=== PATIENT | female | born 2000 | race Two or more races ===

== ENCOUNTER → 2020-12-16 08:53 | Outpatient (CLI) | payer OTHER | END | disposition home or self-care (01) | LOC: PPH VACUNA 08:53 | DX: Z23 Encounter for immunization (principal) ==

== ENCOUNTER 2024-05-07 08:49 | Inpatient (IN) | payer OTHER ==
[~2024-05-07] VITALS: Ht 157.5 cm; Wt 84.4 kg
[2024-05-07] VITALS (11 sets, daily range): BP systolic 125–150; BP diastolic 71–96; O2SAT 99
[2024-05-07] MEDS ORDERED: AMPICILLIN SODIUM 2,000 MG VIAL IV STA (09:01)
[2024-05-07] MEDS ORDERED: MORPHINE SULFATE 4 MG/ML VIAL IV STA (09:06)
[2024-05-07] MEDS ORDERED: OXYTOCIN 1,000 ML IV ONE (09:15)
[2024-05-07] MEDS ORDERED: RINGERS SOLUTION,LACTATED 1,000 ML IV SCH (09:15)
[2024-05-07] MEDS ORDERED: AMPICILLIN TRI500 MG (09:15)
[2024-05-07] MEDS ORDERED: PRENATAL TABLE1 EAC1 (09:16)
[2024-05-07 10:11] LABS: PH,URINE 5.5 (5.0-8.0); URINE APPEARANCE Turbid; URINE BILIRRUBIN Small (NEGATIVE); URINE BLOOD Large; URINE COLOR Dark Yellow; URINE GLUCOSE Negative (NEGATIVE); URINE KETONE Trace (NEGATIVE); URINE LEUKOCYTE Large; URINE NITRATE Negative
[2024-05-07 10:28] LABS: URINE BACTERIA 9641.3 uL (0.0-1933); URINE RBC 303.7 uL (0.0-20.8); URINE WBC 3800.2 uL (0.0-23.2)
[2024-05-07 10:37] LABS: URINE EPITHELIAL CELLS > 201.7 uL (0.0-38.8); URINE PROTEIN 100 (NEGATIVE)
[2024-05-07 10:38] LABS: URINE CRYSTALS MODERATE /HPF
[2024-05-07 10:42] LABS: HEMATOCRIT 33.7 % (36.0-45.00); HEMOGLOBIN 11.1 g/dL (12.0-15.00); MEAN CELL VOLUME 84.3 fL (80.00-100.00); MEAN CORPUSCULAR HEMOGLOBIN 27.7 pg (27.00-32.0); MEAN CORPUSCULAR HGB CONC 32.9 g/dl (32.0-36.0); PLATELET COUNT 141 K/uL (150-450); RED BLOOD COUNT 4.01 M/uL (4.00-6.00); RED CELL DISTRIBUTION WIDTH 15.3 % (11.5-14.5)
[2024-05-07 10:43] LABS: INR 0.95; PARTIAL THROMBOPLASTIN TIME 28.5 SECONDS (22.0-34.0); PROTHROMBIN TIME 10.4 SECONDS (9.0-11.5)
[2024-05-07 10:46] LABS: CALCIUM 8.9 mg/dL (8.5-10.1); CREATININE SERUM 0.54 mg/dL (0.55-1.02); GFR 138.7; POTASSIUM 3.7 mEq/L (3.5-5.1)
[2024-05-07] MEDS ORDERED: IBUprofen 400 MG TABLET PO PRN (12:15)
[2024-05-07] MEDS ORDERED: OXYTOCIN 1,000 ML IV SCH (12:30)
[2024-05-07] MEDS ORDERED: CHLORHEXIDINE GLUCONATE 120 ML BOTTLE TOP NR (12:30)
[2024-05-07] MEDS ORDERED: OXYTOCIN 10 UNITS/ML VIAL IM STA (12:30)
[2024-05-07] MEDS ORDERED: ERYTHROMYCIN BASE OPHT 1GM EACH TUBE OP ONE (12:45)
[2024-05-07] MEDS ORDERED: LIDOCAINE HCL 1% 10ML VIAL PERCUT ONE (12:45)
[2024-05-07] MEDS ORDERED: AMPICILLIN SODIUM 1,000 MG VIAL IV SCH (13:00)
[2024-05-07 16:08] LABS: HEMATOCRIT 34.1 % (36.0-45.00); HEMOGLOBIN 11.2 g/dL (12.0-15.00); MEAN CELL VOLUME 83.6 fL (80.00-100.00); MEAN CORPUSCULAR HEMOGLOBIN 27.3 pg (27.00-32.0); MEAN CORPUSCULAR HGB CONC 32.7 g/dl (32.0-36.0); PLATELET COUNT 156 K/uL (150-450); RED BLOOD COUNT 4.08 M/uL (4.00-6.00); RED CELL DISTRIBUTION WIDTH 15.1 % (11.5-14.5)
[2024-05-08 01:11] VITALS: BP 110/63
[2024-05-08 09:06] VITALS: BP 129/85
[2024-05-08 16:00] VITALS: BP 115/73
[2024-05-09 01:31] VITALS: BP 116/69
[2024-05-09 08:00] VITALS: BP 121/76
== END 2024-05-09 17:01 | disposition home or self-care (01) | DRG 807 ==
LOC: OB/GYN 08:49 → LDR 08:49 → OB/GYN 15:15
PROVIDERS: ADMIT Obstetrics & Gynecology; ATTEND Obstetrics & Gynecology
PROC: 10E0XZZ Delivery of Products of Conception, External Approach (ICD-10-PCS; principal; 2024-05-07)
PROC: 0HQ9XZZ Repair Perineum Skin, External Approach (ICD-10-PCS; 2024-05-07)
PROC: 4A1HXCZ Monitoring of Products of Conception, Cardiac Rate, External Approach (ICD-10-PCS; 2024-05-07)
DX: O70.0 First degree perineal laceration during delivery (principal); Z37.0 Single live birth; O99.824 Streptococcus B carrier state complicating childbirth; Z3A.39 39 weeks gestation of pregnancy; Z20.822 Contact with and (suspected) exposure to COVID-19